=== PATIENT | male | born 1945 | race Two or more races ===

== ENCOUNTER 2016-06-02 00:42 | Observation (INO) | payer MEDICARE ==
[2016-06-02] MEDS ORDERED: Aspirin Low Dose CHEW TAB* 81 MG PO ONE (02:05)
[2016-06-02 03:13] LABS: Hematocrit 48 % (42-52); Hemoglobin 16.6 g/dl (14.0-18.0); Mean Corpuscular HGB Conc 34 g/dl (31-36); Mean Corpuscular Hemoglobin 31 pg (27-31); Mean Corpuscular Volume 90 fL (80-94); Mean Platelet Volume 8 um3 (7.4-10.4); Red Blood Count 5.37 10^6/ul (4.0-5.4); Red Cell Distribution Width 13 % (10.5-15); White Blood Count 7.1 10^3/ul (3.5-10.8)
[2016-06-02 03:28] LABS: Albumin 4.3 g/dL (3.2-5.2); Calcium 9.4 mg/dL (8.6-10.3); EGFR African American 91.1 (>60); EGFR Non-African American 70.8 (>60); Globulin 2.7 g/dL (2-4); Total Bilirubin 0.3 mg/dL (0.2-1.0)
[2016-06-02] MEDS ORDERED: Iohexol 350* (CONTRAST) 500 ML MDV IV ONE (03:48)
--- NOTE | 2016-06-02 07:50 | RAD ---
HISTORY: Shortness of breath COMPARISONS: July 26, 2005 VIEWS:1: Single frontal portable view of the chest at 2:20 AM FINDINGS: LINES AND TUBES: None. CARDIOMEDIASTINAL SILHOUETTE: The cardiomediastinal silhouette is normal for portable technique. PLEURA: The costophrenic angles are sharp. No pleural abnormalities are noted. LUNG PARENCHYMA: The lungs are clear. ABDOMEN: The upper abdomen is clear. There is no subphrenic gas. BONES AND SOFT TISSUES: No bone or soft tissue abnormalities are noted. IMPRESSION: NO ACTIVE CARDIOPULMONARY DISEASE.
--- NOTE | 2016-06-02 07:57 | RAD ---
HISTORY: Shortness of breath COMPARISONS: None TECHNIQUE: Multiple contiguous axial CT scans of the chest were obtained after the administration of nonionic intravenous contrast, timed to the pulmonary arterial phase of contrast enhancement.. Coronal and sagittal multiplanar reformations are also submitted for review. FINDINGS: NECK AND THYROID: The lower neck and thyroid are unremarkable. CHEST WALL: There is no lower cervical, axillary, or supraclavicular lymphadenopathy by size criteria. HEART AND PERICARDIUM: The heart is unremarkable. AORTA AND PULMONARY VASCULATURE: There is no pulmonary arterial filling defect to suggest pulmonary embolism. There is no linear filling defect within the aorta to suggest aortic dissection. MEDIASTINUM: There is no mediastinal lymphadenopathy by size criteria. HALIE: There is no hilar lymphadenopathy by size criteria. AIRWAY AND ESOPHAGUS: The airway is unremarkable, without endobronchial filling defect. The esophagus is grossly normal. LUNG PARENCHYMA: There is a small calcified granuloma in the periphery of the left upper lobe. PLEURA: No pleural abnormalities are noted. UPPER ABDOMEN: The upper abdomen is unremarkable. BONES AND SOFT TISSUES: Mild degenerative changes are noted. Hemangiomas are noted along the lower thoracic spine OTHER: None. IMPRESSION: NO PULMONARY ARTERIAL FILLING DEFECT TO SUGGEST PULMONARY EMBOLISM.
[2016-06-02] MEDS ORDERED: Acetaminophen TAB* 325 MG PO PRN (08:34)
[2016-06-02] MEDS ORDERED: Ondansetron INJ* 2 MG/ML VIAL IV PRN (08:34)
[2016-06-02 09:14] VITALS: BP 108/66
[2016-06-02 09:50] LABS: HDL Cholesterol 43.7 mg/dL
[2016-06-02] MEDS ORDERED: Regadenoson* 0.4 MG/5 ML SYRINGE ONE (12:52)
--- NOTE | 2016-06-02 13:45 | RAD ---
Edited for charges. INDICATION: Palpitations, dyspnea, LEFT arm numbness. Hypertension. COMPARISON: None. TECHNIQUE: 10.300 mCi of Tc-99m Myoview were administered IV. SPECT images of the heart were obtained. Later on the same day, 26.500 FINDINGS: Gated wall motion images were obtained at stress and demonstrate wall motion to be within normal limits. The calculated left ventricular ejection fraction is 66 % at stress. Estimated LEFT ventricular end diastolic volume is 88 mL. TID 1.18. Diaphragmatic attenuation noted. Based on review of the attenuation corrected and non corrected images the distribution of radiopharmaceutical within the myocardium on the stress and rest images is within normal limits. No fixed or reversible regions of hypoperfusion evident. IMPRESSION: 1. No evidence for stress induced myocardial ischemia or presence of an infarct. 2. Normal left ventricular wall motion and ejection fraction. ASSESSMENT: LOW RISK. Based on imaging criteria from ACC/AHA 2002 Guideline Update for the Management of Patients With Chronic Stable Angina Table 23. Noninvasive Risk Stratification. MTDD
--- NOTE | 2016-06-02 18:31 | HP ---
ADMISSION HISTORY AND PHYSICAL: DATE OF ADMISSION: PRIMARY CARE PROVIDER: Patricia Wesley NP ADMITTING PROVIDER: ARVIN Richey SUPERVISING PHYSICIAN: Dr. Cynthia Goodwin.* (dictated by ARVIN Richey) CHIEF COMPLAINT: Shortness of breath, diaphoresis, and palpitations. HISTORY OF PRESENT ILLNESS: This is a 70-year-old gentleman with hypertension and BPH, who presented to the emergency department via EMS with complaints of shortness of breath and palpitations with associated diaphoresis. The patient received nitroglycerin by EMS and states that his symptoms resolved shortly thereafter and have not recurred since. The patient states that over the last 10 days or so, he has been having intermittent palpitations and a tingling sensation in his left arm. He does have some occasional shortness of breath associated with this. He states that he had similar episode of chest pain about 1 year ago while he was traveling in [place] and was seen in the emergency department at that time and was noted to be severely hypertensive. He states that stress testing was not completed at that time. No history of prior stress test. The patient was seen by his primary care provider yesterday due to these complaints of intermittent palpitations and shortness of breath. An Holter monitor and stress test had been ordered for him at that time. The patient denies any recent abdominal pain, nausea, vomiting, or diarrhea. No recent cough or fevers. No rhinorrhea. No other URI symptoms. The patient denies any personal or family history of coronary disease. HOME MEDICATIONS: 1. Aspirin 81 mg p.o. daily. 2. Finasteride 5 mg p.o. daily. 3. Lisinopril 20 mg p.o. daily. 4. Flomax 0.4 mg daily. 5. Amlodipine 5 mg p.o. daily. PAST MEDICAL HISTORY: 1. Hypertension. 2. BPH. PAST SURGICAL HISTORY: Excision of basal cell carcinoma off his leg. FAMILY HISTORY: Denies any history of coronary disease. SOCIAL HISTORY: The patient has a 76-sooe-cuyt smoking history, quit almost 40 years ago. He consumes 1 glass of wine daily. He lives at home with his . He is retired. REVIEW OF SYSTEMS: As listed above in HPI and otherwise negative. PHYSICAL EXAMINATION GENERAL: This is a very pleasant gentleman, who appears younger than his stated age, who is in no acute distress, lying comfortably in a hospital stretcher. VITAL SIGNS: Temperature 98.7 degrees Fahrenheit, pulse 85 beats per minute, respiratory rate 16 per minute, oxygen saturation 97% on room air, blood pressure 154/81 mmHg. HEENT: Head is normocephalic and atraumatic. Mucous membranes are pink and moist. RESPIRATORY: Lungs are clear to auscultation without wheezes, crackles, or rhonchi. CARDIOVASCULAR: Heart has a regular rate and rhythm without murmurs, rubs, or gallops. ABDOMEN: Abdomen is soft and nontender to palpation. EXTREMITIES: No lower extremity edema appreciated. PSYCH: The patient is alert and appropriately oriented. SKIN: Limited exam shows no concerning rashes or lesions. He does have a covered area on his right anterior lower leg without signs of associated infection. DIAGNOSTIC STUDIES/LAB DATA: CBC is unremarkable with white blood cell count of 7100, hemoglobin of 16.6, and a platelet count of 223,000. Comprehensive metabolic panel is essentially within normal limits. He has a sodium of 136 mmol/L, potassium 4.0, BUN of 27, creatinine of 1.04 with an estimated GFR of 70 , random glucose of 120 mg/dL. Initial troponin negative at 0.00, repeat troponin after 3 hours was also 0.00. Imaging: CTA of the chest shows no PE or other acute process. Chest x-ray shows no acute disease. EKG shows a normal sinus rhythm. ASSESSMENT AND PLAN: This is a 70-year-old gentleman with hypertension and benign prostatic hyperplasia, who presents with complaints of shortness of breath, diaphoresis, and palpitations that improved with nitroglycerin. 1. Chest pain equivalent - the patient had acute symptoms concerning for possible cardiac etiology. He did have an episode of palpitations in the emergency department and I reviewed his telemetry personally and he has no alarms and has been maintaining a sinus rhythm in the 60s to 70s during his stay. Initial troponin x2 was negative. The patient will be scheduled for an exercise nuclear stress test later today. We will maintain continuous telemetry monitoring. Stress testing is negative. The patient would likely benefit from an outpatient Holter monitor. 2. Hypertension - the patient is currently normotensive. We will plan to continue his lisinopril and amlodipine. 3. Benign prostatic hyperplasia - continue finasteride and Flomax. 4. Code status - the patient is a full code. 5. Healthcare proxy is his . 6. DVT prophylaxis - the patient is at moderate risk, but anticipate short length of stay and for that reason, will request SCDs and regular ambulation, but will not initiate medical therapy at this time. DISPOSITION: The patient is being admitted to observation status post pending cardiac stress test for later today. Anticipate likely discharge this afternoon. ARVIN RICHEY CC: [place] [id number]/[facility] [place]: [id number] MTDShashi
--- NOTE | 2016-06-03 03:47 | DS ---
DISCHARGE SUMMARY: DATE OF ADMISSION: 06/02/16 DATE OF DISCHARGE: 06/02/16 PRIMARY CARE PROVIDER: Patricia Wesley NP DISCHARGING PROVIDER: ARVIN Richey SUPERVISING PHYSICIAN: Dr. Cynthia Goodwin.* (dictated by ARVIN Richey) PRIMARY DISCHARGE DIAGNOSIS: Palpitations with shortness of breath. SECONDARY DISCHARGE DIAGNOSES: 1. Hypertension. 2. Benign prostatic hypertrophy. DISCHARGE MEDICATIONS: 1. Aspirin 81 mg p.o. daily. 2. Finasteride 5 mg p.o. at bedtime. 3. Lisinopril 20 p.o. at bedtime. 4. Flomax 0.4 mg p.o. daily. 5. Amlodipine 5 mg p.o. daily. Medication Changes: None. HOSPITAL IMAGIN. CTA of the chest shows no PE or other acute pathology. 2. Chest x-ray shows no acute disease. 3. EKG shows a normal sinus rhythm. 4. Nuclear stress testing is a low risk study without areas of ischemia or infarct. 5. Telemetry, normal sinus rhythm with the rate in the 60s. HOSPITAL COURSE: This is a 70-year-old gentleman with hypertension and BPH who presented to the emergency department with acute onset of shortness of breath with diaphoresis and palpitations. The patient had been having similar, but less severe symptoms for approximately the last 10 days. He was seen by his primary care provider yesterday with this complaint, who had ordered a stress test and a Holter monitor for him. The patient's symptoms resolved with the use of nitroglycerin. When he reached to the emergency department, initial EKG showed a normal sinus rhythm without ischemic changes. Initial troponin was negative. Chest x-ray was also unremarkable. CTA of the chest was completed to evaluate for PE, which was also negative. Remainder of labs remained unremarkable. The patient underwent nuclear stress testing after 2 negative troponins, which was read as a low risk study without areas of ischemia or infarct. The patient remained asymptomatic throughout his hospital stay. No dysrhythmias appreciated on telemetry. He has already been referred for a Holter Monitor by his primary care provider, which is certainly recommended to complete. DISPOSITION: The patient is being discharged to home where he lives with his . No changes recommended to his home medications. Recommend completing Holter monitor as prescribed by his primary care provider and subsequent followup with his primary care provider either later this week or the first part of next week. ARVIN RICHEY CC: Patricia Wesley, [employer]* [id number]/[facility] #: [id number] [facility]
--- NOTE | 2016-06-03 21:22 | ED ---
Juan Miguel Medrano Billy, scribed for Antonoi Maldonado MD on 06/02/16 at 0224 . Shortness of Breath - HPI Summary HPI Summary: Patient is a 70 year-old male coming to [facility] for evaluation of palpitations, numbness/tingling in the LUE, and SOB. He states that his symptoms started as he was lying in bed, awake, with the racing heart sensation. He then reported the numbness in the LUE, followed by the SOB. He was given NTG by EMS with improvement. Denies any incidence of chest pain today. No pain with inspiration. Denies any cardiac history. He has had several episodes of palpitations in the last few weeks. He has had intermittent left ankle edema for the last year. Patient has been driving cross[place]country for the last several weeks, and recently returned to the area 3 days ago. - History of Current Complaint Chief Complaint: EDShortnessOfBreath Time Seen by Provider: 06/02/16 00:57 Hx Obtained From: Patient Onset/Duration: Gradual Onset Timing: Constant Current Severity: Moderate Dyspnea At: Rest - Allergy/Home Medications Allergies/Adverse Reactions: Allergies Allergy/AdvReac Type Severity Reaction Status Date / Time No Known Allergies Allergy Verified 10/18/15 16:07 PMH/Surg Hx/FS Hx/Imm Hx Endocrine/Hematology History: Denies: Hx Diabetes, Hx Thyroid Disease Cardiovascular History: Reports: Hx Hypertension Denies: Hx Pacemaker/ICD Respiratory History: Denies: Hx Asthma, Hx Chronic Obstructive Pulmonary Disease (COPD) GI History: Denies: Hx Ulcer History: Denies: Hx Renal Disease Sensory History: Denies: Hx Hearing Aid Psychiatric History: Denies: Hx Panic Disorder Infectious Disease History: No Infectious Disease History: Denies: Hx Hepatitis, Hx Human Immunodeficiency Virus (HIV), Traveled Outside the [place] in Last 30 Days - Family History Known Family History: Negative: Cardiac Disease - Social History Alcohol Use: Daily Substance Use Type: Reports: Excessive Caffeine Smoking Status (MU): Former Smoker - quit 25 years ago Review of Systems Negative: Fever, Chills Negative: Erythema Negative: Sore Throat Positive: Palpitations. Negative: Chest Pain Positive: Shortness Of Breath. Negative: Cough Negative: Abdominal Pain, Vomiting, Nausea Positive: Edema. Negative: Myalgia Negative: Rash Positive: Paresthesia, Numbness All Other Systems Reviewed And Are Negative: Yes Physical Exam - Summary Physical Exam Summary: Constitutional: Well-developed, Well-nourished, Alert. (-) Distressed Skin: Warm, Dry HENT: Normocephalic; Atraumatic Eyes: Conjunctiva normal Neck: Musculoskeletal ROM normal neck. (-) JVD, (-) Stridor, (-) Tracheal deviation Cardio: Rhythm regular, rate normal, Heart sounds normal; Intact distal pulses; The pedal pulses are 2+ and symmetric. Radial pulses are 2+ and symmetric. (-) Murmur Pulmonary/Chest wall: Effort normal. (-) Respiratory distress, (-) Wheezes, (-) Rales Abd: Soft, (-) Tenderness, (-) Distension, (-) Guarding, (-) Rebound Musculoskeletal: (-) Edema Lymph: (-) Cervical adenopathy Neuro: Alert, Oriented x3 Psych: Mood and affect Normal Triage Information Reviewed: Yes Vital Signs On Initial Exam: Initial Vitals Temp Pulse Resp BP Pulse Ox 98.7 F 85 16 154/81 97 06/02/16 00:50 06/02/16 00:50 06/02/16 00:50 06/02/16 00:50 06/02/16 00:50 Vital Signs Reviewed: Yes - Yvette Coma Scale Coma Scale Total: 15 Diagnostics - Vital Signs Vital Signs Temp Pulse Resp BP Pulse Ox 06/02/16 02:00 75 22 130/64 96 06/02/16 01:30 79 22 134/64 95 06/02/16 01:00 79 26 136/70 95 06/02/16 00:52 81 18 97 06/02/16 00:51 98.7 F 85 16 154/81 97 06/02/16 00:50 98.7 F 85 16 145/81 97 - Laboratory Result Diagrams: 06/02/16 02:55 06/02/16 02:55 Lab Statement: Any lab studies that have been ordered have been reviewed, and results considered in the medical decision making process. - Radiology CXR Xray Interpretation: No Acute Changes Radiology Interpretation Completed By: ED Physician - CT CTA chest CT Interpretation: No Acute Changes CT Interpretation Completed By: Radiologist - EKG 0214 EKG Interpretation: NSR 73 bpm, no STEMI Re-Evaluation - Re-Evaluation First Eval Re-Evaluation Time: 05:10 Change: Unchanged Comment: Labs, imaging reviewed. He remains asymptomatic. Course/Dx - Course Assessment/Plan: 70 y/o male coming to [facility] for evaluation of palpitations, SOB , and LUE numbness/tingling. CXR and CTA chest show no active disease. EKG unremarkable. Labs show troponin of 0.00. In the ED course, patient was given ASA. Patient care discussed with Dr. Jarrett, who accepted the patient for admission. - Diagnoses Provider Diagnoses: Chest pain, unspecified - Physician Notifications Discussed Care of Patient With: Dr. Jarrett (hospitalist) @ 0511: accepts admission. Discharge - Discharge Plan Condition: Stable Disposition: ADMITTED TO [facility] Referrals: Patricia Wesley [Primary Care Provider] - The documentation as recorded by the Juan Miguel melchor Billy accurately reflects the service I personally performed and the decisions made by me, Antonio Maldonado MD.
== END 2016-06-02 16:17 | disposition home or self-care (01) ==
LOC: ED 00:42 → MEDTELE 06:53
PROVIDERS: ADMIT Internal Medicine; ATTEND Internal Medicine
DX: R00.2 Palpitations (principal); R06.02 Shortness of breath; I10 Essential (primary) hypertension; N40.0 Benign prostatic hyperplasia without lower urinary tract symptoms; Z79.82 Long term (current) use of aspirin; Z85.828 Personal history of other malignant neoplasm of skin; Z87.891 Personal history of nicotine dependence
CPT/HCPCS: 36415; 71010; 71275; 78452; 80053; 80061; 83605; 84484; 85025; 93005; 93017; 96374; 99283; A9502; G0378; J2785; Q9967

== ENCOUNTER 2020-01-13 21:55 | Inpatient (IN) ==
[2020-01-13] MEDS ORDERED: NS 0.9% 1000 ml BAG 1,000 ML IV ONE (22:05)
[2020-01-13 22:36] LABS: ABS Eosinophils 0.1 10^3/ul (0-0.6); ABS Lymphocytes 1.3 10^3/ul (1.0-4.8); ABS Monocytes 0.6 10^3/ul (0-0.8); ABS Neutrophils 5.4 10^3/ul (1.5-7.7); Eosinophil % 1.3 %; Hematocrit 46 % (42-52); Lymphocyte % 17.9 %; Mean Corpuscular HGB Conc 35 g/dL (31-36); Mean Corpuscular Hemoglobin 31 pg (27-31); Mean Corpuscular Volume 90 fL (80-94); Mean Platelet Volume 7.4 fL (7.4-10.4); Platelet Count 235 10^3/uL (150-450); Red Blood Count 5.14 10^6 /uL (4.18-5.48); Red Cell Distribution Width 13 % (10-15); White Blood Count 7.5 10^3/uL (3.5-10.8)
[2020-01-13 22:43] LABS: INR 0.99 (0.82-1.09)
[2020-01-13 22:53] LABS: Albumin 4.2 g/dL (3.2-5.2); Albumin/Globulin Ratio 1.6 (1-3); BUN/Creatinine Ratio 21.6 (8-20); Calcium 9.5 mg/dL (8.6-10.3); EGFR African American 78.6 (>60); EGFR Non-African American 64.9 (>60); Globulin 2.7 g/dL (2-4); HDL Cholesterol 54.8 mg/dL; Total Bilirubin 0.3 mg/dL (0.2-1.0); Total Protein 6.9 g/dL (6.4-8.9)
[2020-01-13 22:54] LABS: Potassium 4.2 mmol/L (3.5-5.0)
[2020-01-13] MEDS ORDERED: Iodixanol (CONTRAST) 320 MG/ML 100 ML SDV IV ONE (23:12)
[2020-01-13 23:50] LABS: Urine Appearance Clear; Urine Bilirubin Negative (Negative); Urine Blood Negative (Negative); Urine Color Straw; Urine Glucose Negative (Negative); Urine Ketones Negative (Negative); Urine Nitrite Negative (Negative); Urine Protein Negative (Negative); Urine Specific Gravity 1.004 (1.010-1.030); Urine Urobilinogen Negative (Negative)
[2020-01-14] MEDS ORDERED: Ondansetron 4 mg VIAL 2 MG/ML 2 ml VIAL IV PRN (00:10)
[2020-01-14] MEDS ORDERED: NS 0.9% 1000 ml BAG 1,000 ML IV SCH (04:15)
[2020-01-14] MEDS ORDERED: NS 0.9% 500 ml BAG 500 ML IV ONE (04:16)
[2020-01-14] MEDS ORDERED: OMEPRAZOLE 40 MG PO SCH (09:00)
[2020-01-14 15:47] LABS: Folate 10.66 ng/mL (>3.99)
[2020-01-14] MEDS ORDERED: Enoxaparin 40 MG/0.4 ML SYR SUBCUT SCH (16:00)
[2020-01-15 06:33] LABS: ABS Eosinophils 0.2 10^3/ul (0-0.6); ABS Monocytes 0.4 10^3/ul (0-0.8); ABS Neutrophils 2.5 10^3/ul (1.5-7.7); Hematocrit 43 % (42-52); Hemoglobin 14.4 g/dL (14.0-18.0); Lymphocyte % 38.4 %; Mean Corpuscular HGB Conc 34 g/dL (31-36); Mean Corpuscular Hemoglobin 31 pg (27-31); Mean Corpuscular Volume 91 fL (80-94); Mean Platelet Volume 7.2 fL (7.4-10.4); Nucleated Red Blood Cells % 0.2; Platelet Count 205 10^3/uL (150-450); Red Blood Count 4.66 10^6 /uL (4.18-5.48); Red Cell Distribution Width 13 % (10-15); White Blood Count 5.1 10^3/uL (3.5-10.8)
[2020-01-15 06:49] LABS: BUN/Creatinine Ratio 16.2 (8-20); Calcium 8.7 mg/dL (8.6-10.3); EGFR African American 83.8 (>60); EGFR Non-African American 69.2 (>60); Potassium 4.7 mmol/L (3.5-5.0)
[2020-01-15 11:58] VITALS: BP 132/86
== END 2020-01-15 14:40 | disposition home or self-care (01) ==
LOC: ED 21:55 → MEDTELE 01-14 01:11
PROVIDERS: ADMIT Internal Medicine; ATTEND Internal Medicine